=== PATIENT | male | born 1965 | race Two or more races ===

== ENCOUNTER 2017-05-05 10:09 | Day surgery (SDC) | payer OTHER ==
[~2017-05-05] VITALS: Ht 175.3 cm; Wt 85.7 kg
[~2017-05-05 10:09] MED LIST: BUPIVACAINE/PF 0.5% ONE; GABA100C PO; LIDOCAINE/MPF 2%-EPI 1:200K, 20 ML ONE; MELO15TA24 PO; OMEP-110 PO; THROMBIN 5,000 UNIT VIAL TP ONE; TRANEXAMIC ACID 100 MG/ML, 10ML ONE; VANCOMYCIN 1,000 MG ONE
[2017-05-05] MEDS ORDERED: LACTATED RINGERS 1,000 ML IV SCH (10:32)
[2017-05-05] MEDS ORDERED: FENTANYL PF 250 MCG/5ML ONE (10:43)
[2017-05-05] MEDS ORDERED: MIDAZOLAM 1 MG/ML, 2ML ONE (10:43)
[2017-05-05] MEDS ORDERED: CEFAZOLIN 1,000 MG ONE (10:45)
[2017-05-05] MEDS ORDERED: DEXAMETHASONE 4 MG/ML, 1ML ONE (10:45)
[2017-05-05] MEDS ORDERED: PROPOFOL 10 MG/ML, 20ML ONE (10:45)
[2017-05-05] MEDS ORDERED: ONDANSETRON 2MG/ML, 2ML ONE (10:45)
[2017-05-05] MEDS ORDERED: NEOSTIGMINE 1 MG/ML, 10ML ONE (10:45)
[2017-05-05] MEDS ORDERED: GLYCOPYRROLATE 0.2MG/1ML, 5ML ONE (10:45)
[2017-05-05] MEDS ORDERED: SUCCINYLCHOLINE 20 MG/ML, 10ML ONE (10:45)
[2017-05-05] MEDS ORDERED: ROCURONIUM 10 MG/ML ONE (10:45)
[2017-05-05 10:48] VITALS: BP 119/72
[2017-05-05] MEDS ORDERED: LIDOCAINE 4%, 4 ML SYR/CANN TP ONE (10:54)
[2017-05-05] MEDS ORDERED: ONDANSETRON 2MG/ML, 2ML IVPush PRN (11:00)
[2017-05-05] MEDS ORDERED: ACETAMINOPHEN 325 MG TABLET PO PRN (11:00)
[2017-05-05] MEDS ORDERED: HYDROcodone/APAP 7.5-325MG/15ML UDC PO PRN (11:00)
[2017-05-05] MEDS ORDERED: FENTANYL PF 100 MCG/2ML IV PRN (11:00)
[2017-05-05] MEDS ORDERED: OXYcodone 5 MG/5 ML ORAL.SOL UDC PO PRN (11:00)
[2017-05-05] MEDS ORDERED: HYDROmorphone 1 MG/ML, 1ML IV PRN (11:00)
[2017-05-05] MEDS ORDERED: PROMETHAZINE 25 MG/ML, 1ML IV PRN (11:00)
[2017-05-05] MEDS ORDERED: EPINEPHRINE 1 MG/ML, 1ML ONE (11:16)
[2017-05-05] MEDS ORDERED: HYDROmorphone 2 MG/ML, 1ML ONE (11:41)
[2017-05-05] MEDS ORDERED: BUPIVACAINE LIPOSOME/PF INFIL ONE (11:42)
[2017-05-05] MEDS ORDERED: methylPREDNISolone SOD SUCC 125 MG/2 ML ONE (11:50)
[2017-05-05] MEDS ORDERED: methylPREDNISolone SOD SUCC 40 MG/ML ONE (11:50)
== END 2017-05-05 16:20 ==
LOC: OUT 10:09
PROVIDERS: ATTEND Orthopaedic Surgery Orthopaedic Surgery of the Spine
DX: M48.061 Spinal stenosis, lumbar region without neurogenic claudication (principal); Z88.0 Allergy status to penicillin
CPT/HCPCS: 63047; 63048; 72100; C9290; J0171; J0330; J0690; J1100; J1170; J2250; J2405; J2704; J2710; J2920; J3010; J3370; J3490; J7120; J2930